=== PATIENT | female | born 1990 | race Caucasian/White ===

== ENCOUNTER 2017-05-08 11:41 | Inpatient (IN) | payer BC ==
--- NOTE | 2017-05-08 12:00 | EDM.PDOC ---
ED HPI GENERAL MEDICAL PROBLEM - General Chief Complaint: General Stated Complaint: COLLAPSED LUNG PER CHIROPRACTOR Time Seen by Provider: 05/08/17 11:58 Source of Information: Reports: Patient, Family History Limitations: Reports: No Limitations - History of Present Illness INITIAL COMMENTS - FREE TEXT/NARRATIVE: 26 y.o.w.f came to the ed after she was seen at a chiropractor's office and was told to go to an ED she may have a ruptured lung. On arrival, the patient had equal breath sounds but complained of pain at her mid lower back right para vertebral. Pt denied trauma. Pt denies any other medical issues. She takes tylenol for pain and is on the control pill. BP was 120/67 Pulse 87 RR 18 Pulse ox 97% on RA Onset: Gradual Onset Date: 05/06/17 Onset Time: 08:00 Duration: Hour(s):, Day(s):, Getting Worse, Intermittent Location: Reports: Back Quality: Reports: Ache, Burning, Dull, Pressure Severity: Moderate Improves with: Reports: Rest Worsens with: Reports: Breathing, Movement Context: Reports: Lifting Right Lower Thoracic Pain Score (Numeric/FACES): 7 - Related Data Allergies Allergy/AdvReac Type Severity Reaction Status Date / Time No Known Allergies Allergy Verified 05/08/17 11:51 Home Meds: Home Meds SUMAtriptan [Imitrex] 25 mg PO DAILY 05/08/17 [History] ED ROS GENERAL - Review of Systems Review Of Systems: See Below Constitutional: Reports: No Symptoms HEENT: Reports: No Symptoms Respiratory: Reports: Pleuritic Chest Pain Cardiovascular: Reports: No Symptoms Endocrine: Reports: No Symptoms GI/Abdominal: Reports: No Symptoms : Reports: No Symptoms Musculoskeletal: Reports: Back Pain Skin: Reports: No Symptoms Neurological: Reports: No Symptoms, Confusion Psychiatric: Reports: No Symptoms Hematologic/Lymphatic: Reports: No Symptoms Immunologic: Reports: No Symptoms ED EXAM, GENERAL - Physical Exam Exam: See Below Exam Limited By: No Limitations General Appearance: Alert, WD/WN, Obese Eye Exam: Bilateral Eye: Normal Inspection Ears: Normal External Exam, Normal Canal Ear Exam: Bilateral Ear: Auricle Normal Nose: Normal Inspection, Normal Mucosa Throat/Mouth: Normal Inspection, Normal Lips Head: Atraumatic, Normocephalic Neck: Normal Inspection, Supple, Non-Tender, Full Range of Motion Respiratory/Chest: No Respiratory Distress, Lungs Clear, Normal Breath Sounds, No Accessory Muscle Use, Other (posterior chest wall tenderness) Cardiovascular: Normal Peripheral Pulses, Regular Rate, Rhythm, No Edema, No Gallop, No JVD, No Murmur, No Rub Peripheral Pulses: 1+: Brachial (R) GI/Abdominal: Normal Bowel Sounds, Soft, Non-Tender, No Organomegaly (Female) Exam: Deferred Rectal (Female) Exam: Deferred Back Exam: Normal Inspection, Full Range of Motion Extremities: Normal Inspection, Normal Range of Motion, Non-Tender, No Pedal Edema Neurological: Alert, Oriented, CN II-XII Intact, Normal Cognition, Normal Gait, No Motor/Sensory Deficits Psychiatric: Normal Affect, Normal Mood Skin Exam: Warm, Dry, Intact, Normal Color, No Rash Lymphatic: No Adenopathy EKG INTERPRETATION EKG Date: 05/08/17 Time: 13:35 Rhythm: NSR Rate (Beats/Min): 91 [place]: Normal P-Wave: Present QRS: Normal ST-T: Normal QT: Normal Comparison: NA - No Prior EKG Course - Vital Signs Text/Narrative:: 26 y.o.w.f came to the ed after she was seen at a chiropractor's office and was told to go to an ED she may have a ruptured lung. On arrival, the patient had equal breath sounds but complained of pain at her mid lower back right para vertebral. Pt denied trauma. Pt denies any other medical issues. She takes tylenol for pain and is on the control pill. BP was 120/67 Pulse 87 RR 18 Pulse ox 97% on RA PE: WNWD W F wt back pain Incident: Pt passed out for a few seconds a few min after Toradol was given. Nurse called code blue. As i arrived at the pt's room, she was pale but resopnding to verbal stimuli. Vitals were check and found to be Nl. Pt did not complain of any pain but her back as prev mentioned. Pt was tranported with a kids club attendant back on her bed and reexamined. No head, neck, chest (please see note above) abd. pelvis and extremity pain. Labs, meds and imaging studies were ordered. Labs: UA pos for UTI, neg for HCG, WBC was 16.6 with left shift, D Dimer was [id number] Imaging: CXR 2 view: Nl, no Pneumo, no infiltrate. Read by RAD CTA chest was pos for RLL lung infarct, PA at RLL of lung (central/peripheral). Risk factors for PE, CVA etc on a young patient: Birthcontrol, activity and Obesity Impression: Pulmonary embolism with pulmonary infarct RLL of lung. C/W sprain, vasovagal syncopy after toradol shot given, UTI Tx: ICE, Toradol, Duoneb, Solumedrol, Levoquin, NS intially. After CT results came back, Heparin boulus and Heparin drip were started. 4.20 pm: Consultation: Dr. Basilio, Hospitalist at [facility]: Agreed with Heparin bolus/drip, accepted the patient for transfer and further care. 4.56 pm EMS was adviced no to transfer pt due to the extreme bad weather condition 5.01 pm: Consultation: Dr. Cuellar: Accepted the pt for admission to the ICU and further care. Dr. Cuellar will write the admission oders. Plan: Admit to ICU Last Recorded V/S: Last Vital Signs Temp 36.5 C 05/08/17 21:30 Pulse 93 05/08/17 21:30 Resp 16 05/08/17 21:30 BP 123/74 05/08/17 21:30 Pulse Ox 94 L 05/08/17 21:30 - Orders/Labs/Meds Orders: Active Orders 24 hr Category Date Time Status Ang Chest [CT] Stat Exams 05/08/17 15:09 Taken CULTURE BLOOD [BC] Urgent Lab 05/08/17 14:25 Received CULTURE BLOOD [BC] Urgent Lab 05/08/17 17:28 Received CULTURE URINE [RM] Stat Lab 05/08/17 11:59 Received Blood Culture x2 Reflex Set [OM.PC] Urgent Oth 05/08/17 14:30 Ordered Blood Culture x2 Reflex Set [OM.PC] Urgent Oth 05/08/17 17:04 Ordered Ice Bag [Ice Therapy] [OM.PC] Routine Oth 05/08/17 12:57 Ordered Medication Orders Hydrocodone Bitart/Acetaminophen ([place] 325-5 Mg) 1 tab PO Q4H PRN PRN Reason: Pain (moderate 4-6) Levofloxacin/Dextrose 750 mg/ (Premix) 150 mls @ 100 mls/hr IV Q24H [facility] Rivaroxaban (Xarelto) 15 mg [facility]ALS [facility] Sodium Chloride (Saline Flush) 10 ml FLUSH ASDIRECTED PRN PRN Reason: Keep Vein Open Last Admin: 05/08/17 20:38 Dose: 10 ml Admin: 05/08/17 18:09 Dose: 10 ml Labs: Laboratory Tests 05/08/17 05/08/17 05/08/17 Range/Units 11:59 11:59 11:59 WBC (4.5-12.0) X10-3/uL RBC (3.23-5.20) x10(6)uL Hgb (11.5-15.5) g/dL Hct (30.0-51.3) % MCV (80-96) fL MCH (27.7-33.6) pg MCHC (32.2-35.4) g/dL RDW (11.5-15.5) % Plt Count (125-369) X10(3)uL MPV (7.4-10.4) fL Neut % (Auto) (46-82) % Lymph % (Auto) (13-37) % Brooke % (Auto) (4-12) % Eos % (Auto) (1.0-5.0) % Baso % (Auto) (0-2) % Neut # (Auto) (1.6-8.3) # Lymph # (Auto) (0.6-5.0) # Brooke # (Auto) (0.0-1.3) # Eos # (Auto) (0.0-0.8) # Baso # (Auto) (0.0-0.2) # PT (8.7-11.1) INR (0.89-1.13) APTT (24.4-33.2) SECONDS D-Dimer, Quantitative (100-400) ng/mL Sodium (135-145) mmol/L Potassium (3.5-5.3) mmol/L Chloride (100-110) mmol/L Carbon Dioxide (21-32) mmol/L BUN (7-18) mg/dL Creatinine (0.55-1.02) mg/dL Est Cr Clr Drug Dosing mL/min Estimated GFR (MDRD) (>60) BUN/Creatinine Ratio (9-20) Glucose (80-116) mg/dL Lactic Acid (0.4-2.2) mmol/L Calcium (8.6-10.2) mg/dL Creatine Kinase (60-160) IU/L Urine Color Yellow (YELLOW) Urine Appearance Cloudy (CLEAR) Urine pH 5.0 (5.0-6.5) Ur Specific [place] 1.020 (1.010-1.025) Urine Protein Trace (NEGATIVE) mg/dL Urine Glucose (UA) Normal (NEGATIVE) mg/dL Urine Ketones Negative (NEGATIVE) mg/dL Urine Occult Blood Moderate H (NEGATIVE) Urine Nitrite Negative (NEGATIVE) Urine Bilirubin Small H (NEGATIVE) Urine Urobilinogen 4 H (NEGATIVE) mg/dL Ur Leukocyte Esterase Large H (NEGATIVE) Urine RBC 5-10 (0) Urine WBC 20-30 H (0) Ur Squamous Epith Cells Moderate H (NS,R,O) Urine Bacteria Many H (NS) Urine HCG, Qual Negative (NEGATIVE) Urine Opiates Screen Negative (NEGATIVE) Ur Oxycodone Screen Negative (NEGATIVE) Ur Propoxyphene Screen Negative (NEGATIVE) Ur Barbituates Screen Negative (NEGATIVE) Ur Tricyclics Screen Negative (NEGATIVE) Ur Phencyclidine Scrn Negative (NEGATIVE) Ur Amphetamine Screen Negative (NEGATIVE) Urine MDMA Screen Negative (NEGATIVE) U Benzodiazepines Scrn Negative (NEGATIVE) U Cocaine Metab Screen Negative (NEGATIVE) U Marijuana (THC) Screen Negative (NEGATIVE) Ethyl Alcohol (<0.03) % 05/08/17 05/08/17 05/08/17 Range/Units 13:35 13:40 13:40 WBC 16.6 H (4.5-12.0) X10-3/uL RBC 4.19 (3.23-5.20) x10(6)uL Hgb 11.9 (11.5-15.5) g/dL Hct 35.4 (30.0-51.3) % MCV 84.5 (80-96) fL MCH 28.3 (27.7-33.6) pg MCHC 33.5 (32.2-35.4) g/dL RDW 13.2 (11.5-15.5) % Plt Count 247 (125-369) X10(3)uL MPV 8.8 (7.4-10.4) fL Neut % (Auto) 84.8 H (46-82) % Lymph % (Auto) 11.2 L (13-37) % Brooke % (Auto) 2.6 L (4-12) % Eos % (Auto) 1 (1.0-5.0) % Baso % (Auto) 0 (0-2) % Neut # (Auto) 14.1 H (1.6-8.3) # Lymph # (Auto) 1.9 (0.6-5.0) # Brooke # (Auto) 0.4 (0.0-1.3) # Eos # (Auto) 0.2 (0.0-0.8) # Baso # (Auto) 0.0 (0.0-0.2) # PT 9.3 (8.7-11.1) INR 0.92 (0.89-1.13) APTT 25.4 (24.4-33.2) SECONDS D-Dimer, Quantitative (100-400) ng/mL Sodium (135-145) mmol/L Potassium (3.5-5.3) mmol/L Chloride (100-110) mmol/L Carbon Dioxide (21-32) mmol/L BUN (7-18) mg/dL Creatinine (0.55-1.02) mg/dL Est Cr Clr Drug Dosing mL/min Estimated GFR (MDRD) (>60) BUN/Creatinine Ratio (9-20) Glucose (80-116) mg/dL Lactic Acid (0.4-2.2) mmol/L Calcium (8.6-10.2) mg/dL Creatine Kinase (60-160) IU/L Urine Color (YELLOW) Urine Appearance (CLEAR) Urine pH (5.0-6.5) Ur Specific [place] (1.010-1.025) Urine Protein (NEGATIVE) mg/dL Urine Glucose (UA) (NEGATIVE) mg/dL Urine Ketones (NEGATIVE) mg/dL Urine Occult Blood (NEGATIVE) Urine Nitrite (NEGATIVE) Urine Bilirubin (NEGATIVE) Urine Urobilinogen (NEGATIVE) mg/dL Ur Leukocyte Esterase (NEGATIVE) Urine RBC (0) Urine WBC (0) Ur Squamous Epith Cells (NS,R,O) Urine Bacteria (NS) Urine HCG, Qual (NEGATIVE) Urine Opiates Screen (NEGATIVE) Ur Oxycodone Screen (NEGATIVE) Ur Propoxyphene Screen (NEGATIVE) Ur Barbituates Screen (NEGATIVE) Ur Tricyclics Screen (NEGATIVE) Ur Phencyclidine Scrn (NEGATIVE) Ur Amphetamine Screen (NEGATIVE) Urine MDMA Screen (NEGATIVE) U Benzodiazepines Scrn (NEGATIVE) U Cocaine Metab Screen (NEGATIVE) U Marijuana (THC) Screen (NEGATIVE) Ethyl Alcohol (<0.03) % 05/08/17 05/08/17 05/08/17 Range/Units 13:40 13:40 13:40 WBC (4.5-12.0) X10-3/uL RBC (3.23-5.20) x10(6)uL Hgb (11.5-15.5) g/dL Hct (30.0-51.3) % MCV (80-96) fL MCH (27.7-33.6) pg MCHC (32.2-35.4) g/dL RDW (11.5-15.5) % Plt Count (125-369) X10(3)uL MPV (7.4-10.4) fL Neut % (Auto) (46-82) % Lymph % (Auto) (13-37) % [place] % (Auto) (4-12) % Eos % (Auto) (1.0-5.0) % Baso % (Auto) (0-2) % Neut # (Auto) (1.6-8.3) # Lymph # (Auto) (0.6-5.0) # [place] # (Auto) (0.0-1.3) # Eos # (Auto) (0.0-0.8) # Baso # (Auto) (0.0-0.2) # PT (8.7-11.1) INR (0.89-1.13) APTT (24.4-33.2) SECONDS D-Dimer, Quantitative (100-400) ng/mL Sodium 139 (135-145) mmol/L Potassium 4.5 (3.5-5.3) mmol/L Chloride 103 (100-110) mmol/L Carbon Dioxide 25 (21-32) mmol/L BUN 15 (7-18) mg/dL Creatinine 0.8 (0.55-1.02) mg/dL Est Cr Clr Drug Dosing 118.06 mL/min Estimated GFR (MDRD) > 60 (>60) BUN/Creatinine Ratio 18.8 (9-20) Glucose 124 H (80-116) mg/dL Lactic Acid (0.4-2.2) mmol/L Calcium 9.6 (8.6-10.2) mg/dL Creatine Kinase 39 L (60-160) IU/L Urine Color (YELLOW) Urine Appearance (CLEAR) Urine pH (5.0-6.5) Ur Specific [place] (1.010-1.025) Urine Protein (NEGATIVE) mg/dL Urine Glucose (UA) (NEGATIVE) mg/dL Urine Ketones (NEGATIVE) mg/dL Urine Occult Blood (NEGATIVE) Urine Nitrite (NEGATIVE) Urine Bilirubin (NEGATIVE) Urine Urobilinogen (NEGATIVE) mg/dL Ur Leukocyte Esterase (NEGATIVE) Urine RBC (0) Urine WBC (0) Ur Squamous Epith Cells (NS,R,O) Urine Bacteria (NS) Urine HCG, Qual (NEGATIVE) Urine Opiates Screen (NEGATIVE) Ur Oxycodone Screen (NEGATIVE) Ur Propoxyphene Screen (NEGATIVE) Ur Barbituates Screen (NEGATIVE) Ur Tricyclics Screen (NEGATIVE) Ur Phencyclidine Scrn (NEGATIVE) Ur Amphetamine Screen (NEGATIVE) Urine MDMA Screen (NEGATIVE) U Benzodiazepines Scrn (NEGATIVE) U Cocaine Metab Screen (NEGATIVE) U Marijuana (THC) Screen (NEGATIVE) Ethyl Alcohol < 0.03 (<0.03) % 05/08/17 05/08/17 Range/Units 13:40 14:25 WBC (4.5-12.0) X10-3/uL RBC (3.23-5.20) x10(6)uL Hgb (11.5-15.5) g/dL Hct (30.0-51.3) % MCV (80-96) fL MCH (27.7-33.6) pg MCHC (32.2-35.4) g/dL RDW (11.5-15.5) % Plt Count (125-369) X10(3)uL MPV (7.4-10.4) fL Neut % (Auto) (46-82) % Lymph % (Auto) (13-37) % [place] % (Auto) (4-12) % Eos % (Auto) (1.0-5.0) % Baso % (Auto) (0-2) % Neut # (Auto) (1.6-8.3) # Lymph # (Auto) (0.6-5.0) # [place] # (Auto) (0.0-1.3) # Eos # (Auto) (0.0-0.8) # Baso # (Auto) (0.0-0.2) # PT (8.7-11.1) INR (0.89-1.13) APTT (24.4-33.2) SECONDS D-Dimer, Quantitative 3390 H (100-400) ng/mL Sodium (135-145) mmol/L Potassium (3.5-5.3) mmol/L Chloride (100-110) mmol/L Carbon Dioxide (21-32) mmol/L BUN (7-18) mg/dL Creatinine (0.55-1.02) mg/dL Est Cr Clr Drug Dosing mL/min Estimated GFR (MDRD) (>60) BUN/Creatinine Ratio (9-20) Glucose (80-116) mg/dL Lactic Acid 0.4 (0.4-2.2) mmol/L Calcium (8.6-10.2) mg/dL Creatine Kinase (60-160) IU/L Urine Color (YELLOW) Urine Appearance (CLEAR) Urine pH (5.0-6.5) Ur Specific [place] (1.010-1.025) Urine Protein (NEGATIVE) mg/dL Urine Glucose (UA) (NEGATIVE) mg/dL Urine Ketones (NEGATIVE) mg/dL Urine Occult Blood (NEGATIVE) Urine Nitrite (NEGATIVE) Urine Bilirubin (NEGATIVE) Urine Urobilinogen (NEGATIVE) mg/dL Ur Leukocyte Esterase (NEGATIVE) Urine RBC (0) Urine WBC (0) Ur Squamous Epith Cells (NS,R,O) Urine Bacteria (NS) Urine HCG, Qual (NEGATIVE) Urine Opiates Screen (NEGATIVE) Ur Oxycodone Screen (NEGATIVE) Ur Propoxyphene Screen (NEGATIVE) Ur Barbituates Screen (NEGATIVE) Ur Tricyclics Screen (NEGATIVE) Ur Phencyclidine Scrn (NEGATIVE) Ur Amphetamine Screen (NEGATIVE) Urine MDMA Screen (NEGATIVE) U Benzodiazepines Scrn (NEGATIVE) U Cocaine Metab Screen (NEGATIVE) U Marijuana (THC) Screen (NEGATIVE) Ethyl Alcohol (<0.03) % Meds: Medications Generic Name Dose Route Start Last Admin Trade Name Freq PRN Reason Stop Dose Admin Hydrocodone Bitart/Acetaminophen 1 tab 05/08/17 17:42 [place] 325-5 Mg PO Q4H PRN Pain (moderate 4-6) Levofloxacin/Dextrose 750 mg/ 150 mls @ 100 mls/hr 05/09/17 18:00 Premix IV Q24H [facility] Rivaroxaban 15 mg 05/09/17 08:00 Xarelto PO BIDMEALS [facility] Sodium Chloride 10 ml 05/08/17 17:42 05/08/17 20:38 Saline Flush FLUSH 10 ml ASDIRECTED PRN Administration Keep Vein Open Discontinued Medications Generic Name Dose Route Start Last Admin Trade Name Freq PRN Reason Stop Dose Admin Albuterol/Ipratropium 3 ml 05/08/17 13:25 05/08/17 13:30 Duoneb 3.0-0.5 Mg/3 Ml NEB 05/08/17 13:26 3 ml ONETIME ONE Administration Heparin Sodium (Porcine) 7,500 units 05/08/17 16:22 05/08/17 16:26 Heparin Sodium IVPUSH 05/08/17 16:23 7,500 units ONETIME STA Administration Sodium Chloride 1,000 mls @ 999 mls/hr 05/08/17 13:31 05/08/17 13:50 Normal Saline IV 05/08/17 14:31 999 mls/hr .BOLUS ONE Administration Heparin Sodium/Dextrose 25,000 units in 500 mls @ 25.945 mls/hr 05/08/17 16: 30 05/08/17 16:34 Heparin 25,000 Units In D5w 500 Ml IV 11 units/kg/hr TITRATE [facility] 25.945 mls/hr Protocol Administration 11 UNITS/KG/HR Levofloxacin/Dextrose 250 mls @ 250 mls/hr 05/08/17 18:15 05/08/17 19:44 Levaquin In D5w 250 Mg/50 Ml IV 05/08/17 19:14 250 mls/hr ONETIME ONE Administration Iopamidol 100 ml 05/08/17 14:44 05/08/17 15:53 Isovue-370 (76%) IV 05/08/17 14:45 80 ml . DIRECTED ONE Administration Ketorolac Tromethamine 60 mg 05/08/17 12:57 05/08/17 13:03 Toradol IM 05/08/17 12:58 60 mg ONETIME ONE Administration Levofloxacin 500 mg 05/08/17 16:29 05/08/17 16:41 Levaquin PO 05/08/17 16:30 500 mg ONETIME STA Administration Methylprednisolone Sodium Succinate 125 mg 05/08/17 13:24 05/08/17 13:52 Solu-Medrol IVPUSH 05/08/17 13:25 125 mg ONETIME ONE Administration Non-Formulary Medication 25 mg 05/08/17 18:00 Sumatriptan [Imitrex] PO DAILY [facility] Rivaroxaban 15 mg 05/08/17 18:00 05/08/17 19:44 Xarelto PO Not Given BID [facility] Rivaroxaban 15 mg 05/08/17 18:30 05/08/17 19:43 Xarelto PO 05/08/17 18:31 15 mg ONETIME ONE Administration Departure - Departure Time of Disposition: 05:00 Disposition: Admitted As Inpatient 65 Condition: Fair Clinical Impression: Pulmonary emboli - Discharge Information - My Orders Last 24 Hours: My Active Orders 05/08/17 11:59 CULTURE URINE [RM] Stat 05/08/17 12:57 Ice Bag [Ice Therapy] [OM.PC] Routine 05/08/17 14:25 CULTURE BLOOD [BC] Urgent 05/08/17 14:30 Blood Culture x2 Reflex Set [OM.PC] Urgent 05/08/17 15:09 Ang Chest [CT] Stat 05/08/17 17:04 Blood Culture x2 Reflex Set [OM.PC] Urgent 05/08/17 17:28 CULTURE BLOOD [BC] Urgent - Assessment/Plan Last 24 Hours: My Active Orders 05/08/17 11:59 CULTURE URINE [RM] Stat 05/08/17 12:57 Ice Bag [Ice Therapy] [OM.PC] Routine 05/08/17 14:25 CULTURE BLOOD [BC] Urgent 05/08/17 14:30 Blood Culture x2 Reflex Set [OM.PC] Urgent 05/08/17 15:09 Ang Chest [CT] Stat 05/08/17 17:04 Blood Culture x2 Reflex Set [OM.PC] Urgent 05/08/17 17:28 CULTURE BLOOD [BC] Urgent
[2017-05-08] MEDS ORDERED: Ketorolac 60 MG/2 ML SDV IM ONE (12:57)
[2017-05-08] MEDS ORDERED: methylPREDNISolone Sodium Succinate 125 MG/2 ML SDV IVPUSH ONE (13:24)
[2017-05-08] MEDS ORDERED: Albuterol/Ipratropium 3.0-0.5 MG/3 ML Neb Soln NEB ONE (13:25)
[2017-05-08] MEDS ORDERED: Sodium Chloride 0.9% 1,000 ML IV ONE (13:31)
[2017-05-08] MEDS ORDERED: Iopamidol 755 Mg/ML 100 ML Bottle IV ONE (14:44)
--- NOTE | 2017-05-08 15:07 | CR ---
INDICATION: Right lower chest pain, nonsmoker, no history of trauma. CHEST: PA and lateral views of the chest revealed a minimal dextroconcave scoliosis of the upper thoracic spine. Heart, mediastinum, and bony thorax were otherwise unremarkable. There is evidence of exogenous obesity. An active infiltrate, effusion, contusion, or pneumothorax was not identified. IMPRESSION: No acute process. Report was given by phone to Dr. Sánchez at approximately 1315 hours on 2017. GEORGIAD
[2017-05-08] MEDS ORDERED: Heparin Sodium 5,000 Units/ML Vial IVPUSH STA (16:22)
[2017-05-08] MEDS ORDERED: Levofloxacin 500 MG Tab PO STA (16:29)
[2017-05-08] MEDS ORDERED: Heparin Sodium/D5W 25,000 UNITS/500 ML BAG IV SCH (16:30)
[2017-05-08] MEDS ORDERED: Acetaminophen/HYDROcodone 325-5 MG Tab PO PRN (17:42)
[2017-05-08] MEDS ORDERED: SUMATRIPTAN 25 MG PO SCH (18:00)
[2017-05-08] MEDS ORDERED: Rivaroxaban 15 MG Tab PO SCH (18:00)
--- NOTE | 2017-05-08 18:03 | PCM.HP ---
H&P History of Present Illness - General Date of Service: 05/08/17 Admit Problem/Dx: Admission Diagnosis/Problem Admission Diagnosis/Problem Pulmonary embolism Source of Information: Patient History Limitations: Reports: No Limitations - History of Present Illness Initial Comments - Free Text/Narative: This is a 26-year-old came in the ER the right thoracic chest pain. She says it started Monday night and it radiated to her right arm. She says by Monday she says when she sat up it was better when she laid down was worse. She is some Aleve and I give her some relief. Today he got worse and she had a miss work. She went to the chiropractor as a result to some advice from her friends. They sent her to the ER. She was found to have small pulmonary emboli possibly either pneumonia or pulmonary infarct in the right lung. Patient was given Toradol IM and passed out but then her pain was much improved. She's had a cough today and Monday but not since. He does have nasal congestion and runny nose. She denies sore throat, fevers, chills or shortness of breath. She relates her legs are always a little bit swollen. She has no personal or family history of clotting disorders. He is on control. Right Lower Thoracic Pain Score (Numeric/FACES): 7 - Related Data Allergies/Adverse Reactions: Allergies Allergy/AdvReac Type Severity Reaction Status Date / Time No Known Allergies Allergy Verified 05/08/17 11:51 Home Medications: Home Meds SUMAtriptan [Imitrex] 25 mg PO DAILY 05/08/17 [History] Past Medical History - Past Health History Medical/Surgical History: Denies Medical/Surgical History Neurological History: Reports: Migraines Psychiatric History: Reports: Depression Social & Family History - Tobacco Use Smoking Status *Q: Never Smoker - Caffeine Use Caffeine Use: Reports: None - Recreational Drug Use Recreational Drug Use: No H&P Review of Systems - Review of Systems: Review Of Systems: See Below General: Reports: No Symptoms HEENT: Reports: No Symptoms Pulmonary: Reports: Pleuritic Chest Pain, Cough. Denies: Shortness of Breath, Wheezing, Sputum, Hemoptysis Cardiovascular: Reports: No Symptoms Gastrointestinal: Reports: No Symptoms Genitourinary: Reports: No Symptoms Musculoskeletal: Reports: No Symptoms Skin: Reports: No Symptoms Psychiatric: Reports: No Symptoms Neurological: Reports: No Symptoms Hematologic/Lymphatic: Reports: No Symptoms Immunologic: Reports: No Symptoms Exam - Exam Exam: See Below - Vital Signs Vital Signs: Last Vital Signs Temp 97.7 F 05/08/17 11:58 Pulse 91 05/08/17 13:40 Resp 18 05/08/17 11:58 BP 120/80 05/08/17 11:58 Pulse Ox 99 05/08/17 14:00 Weight: 260 lb - Exam General: Alert, Oriented, Cooperative. No: Mild Distress HEENT: Hearing Intact, Mucosa Moist & [place], Posterior Pharynx Clear, TMs Clear Neck: Supple, Trachea Midline Lungs: Clear to Auscultation, Decreased Breath Sounds. No: Crackles, Rales, Rhonchi, Rub Cardiovascular: Regular Rate, Regular Rhythm, Normal S1, Normal S2. No: Tachycardia, Systolic Murmur, Diastolic Murmur GI/Abdominal Exam: Normal Bowel Sounds, Soft, Non-Tender, No Organomegaly, No Distention, No Abnormal Bruit, No Mass Back Exam: Normal Inspection, Full Range of Motion Extremities: Normal Inspection, No Pedal Edema Skin: Warm, Dry, Intact Neurological: Normal Speech, Normal Tone Neuro Extensive - Mental Status: Alert, Oriented x3, Normal Cognition, Memory Intact Neuro Extensive - Motor, Sensory, Reflexes: Normal Gait Psychiatric: Alert, Normal Affect, Normal Mood - Patient Data Result Diagrams: 05/08/17 13:40 05/08/17 13:40 *Q Meaningful Use (ADM) - VTE *Q VTE Criteria *Q: - Stroke *Q Stroke Criteria *Q: - AMI *Q AMI Criteria *Q: - Problem List (1) Pulmonary embolism SNOMED Code(s): 87566416 ICD Code: I26.99 - OTHER PULMONARY EMBOLISM WITHOUT ACUTE COR PULMONALE Status: Acute Current Visit: Yes (2) UTI (urinary tract infection) SNOMED Code(s): 20982608 ICD Code: N39.0 - URINARY TRACT INFECTION, SITE NOT SPECIFIED Status: Acute Current Visit: Yes (3) Pneumonia SNOMED Code(s): 703190466 ICD Code: J18.9 - PNEUMONIA, UNSPECIFIED ORGANISM Status: Acute Current Visit: Yes Qualifiers: Pneumonia type: due to Pneumococcus Laterality: right Lung location: lower lobe of lung Qualified Code(s): J13 - Pneumonia due to Streptococcus pneumoniae (4) Pulmonary infarct SNOMED Code(s): 15926769 ICD Code: I26.99 - OTHER PULMONARY EMBOLISM WITHOUT ACUTE COR PULMONALE Status: Acute Current Visit: Yes Problem List Initiated/Reviewed/Updated: Yes Orders Last 24hrs: Active Orders 24 hr Category Date Time Status Admission Status [Patient Status] [ADT] Routine ADT 05/08/17 17:42 Active Patient Status [ADT] Routine ADT 05/08/17 17:42 Ordered Cardiac Monitoring [RC] CONTINUOUS Care 05/08/17 17:44 Ordered May Shower [RC] ASDIRECTED Care 05/08/17 17:42 Ordered Oxygen Therapy [RC] PRN Care 05/08/17 17:42 Ordered Up ad Alanis [RC] ASDIRECTED Care 05/08/17 17:42 Ordered VTE/DVT Education [RC] Per Unit Routine Care 05/08/17 17:42 Ordered Vital Signs [RC] Q4H Care 05/08/17 17:42 Ordered Regular Diet [DIET] Diet 05/08/17 Dinner Ordered VL Duplex Lwr Ext Veins Comp [US] Routine Exams 05/08/17 17:50 Ordered BLOOD GAS ARTERIAL [BG] Routine Lab 05/08/17 17:42 Ordered CBC WITH AUTO DIFF [HEME] AM Lab 05/09/17 05:11 Ordered COMPREHENSIVE METABOLIC PN,CMP [CHEM] AM Lab 05/09/17 05:11 Ordered PTT,PARTIAL THROMBOPLSTIN TIME [COAG] Routine Lab 05/08/17 17:42 Ordered Acetaminophen/HYDROcodone [[place] 325-5 MG] Med 05/08/17 17:42 Ordered 1 tab PO Q4H PRN Levofloxacin/Dextrose 5%-Water [Levaquin in D5W 750 MG/ Med 05/08/17 18:00 Ordered 150 ML] 750 mg Premix Bag 1 bag IV Q24H Rivaroxaban [Xarelto] Med 05/08/17 18:00 Ordered 15 mg PO BID Sodium Chloride 0.9% [Saline Flush] Med 05/08/17 17:42 Ordered 10 ml FLUSH ASDIRECTED PRN Peripheral IV Insertion Adult [OM.PC] Routine Oth 05/08/17 17:42 Ordered Saline Lock Insert [OM.PC] Routine Oth 05/08/17 17:42 Ordered Sequential Compression Device [OM.PC] Per Unit Routine Oth 05/08/17 17:44 Ordered Resuscitation Status Routine Resus Stat 05/08/17 17:42 Ordered Medication Orders Hydrocodone Bitart/Acetaminophen ([place] 325-5 Mg) 1 tab PO Q4H PRN PRN Reason: Pain (moderate 4-6) Levofloxacin/Dextrose 750 mg/ (Premix) 150 mls @ 100 mls/hr IV Q24H MARLIN Rivaroxaban (Xarelto) 15 mg PO BID MARLIN Sodium Chloride (Saline Flush) 10 ml FLUSH ASDIRECTED PRN PRN Reason: Keep Vein Open Assessment/Plan Comment:: 1. Admit to ICU. 2. She's put on heparin and the the ER. Stop heparin (well Toprol 50 mg twice a day for 3 weeks. 3. Up ad alanis., regular diet. 4. Ultrasound legs in the morning to see if she has any DVTs. 5. Discussed CT results radiologist. He says it could be an infarct or a pneumonia. He says he can't tell the difference in needs to be discerned clinically. She does have a white count but she also has a UTI. 6. Blood cultures 2 and a urine culture. 7. Levaquin 750 mg IV every 24 hours. 8. Continuous O2 sats and telemetry. 9. DC control pills.
[2017-05-08] MEDS: Sodium Chloride 0.9% 10 ML Syringe FLUSH PRN ×2 (18:09→20:38)
[2017-05-08] MEDS ORDERED: Levofloxacin/Dextrose 5%-Water 250 ML IV ONE (18:15)
[2017-05-08] MEDS ORDERED: Rivaroxaban 15 MG Tab PO ONE (18:30)
[2017-05-09] MEDS ORDERED: Rivaroxaban 15 MG Tab PO SCH (08:00)
[2017-05-09] MEDS ORDERED: SUMAtriptan 50 MG Tab PO PRN (09:25)
[2017-05-09] MEDS ORDERED: buPROPion 150 MG Tab.SR PO SCH ×2 (09:30→21:00)
--- NOTE | 2017-05-09 09:42 | PCM.PN ---
- General Info Date of Service: 05/09/17 Admission Dx/Problem (Free Text): Patient without complaints. She denies shortness of breath, chest wall pain or chest pain. Denies coughing or fevers. - Patient Data Vitals - Most Recent: Last Vital Signs Temp 97.9 F 05/09/17 08:00 Pulse 85 05/09/17 04:10 Resp 18 05/09/17 08:00 BP 126/66 05/09/17 08:00 Pulse Ox 98 05/09/17 08:00 Weight - Most Recent: 260 lb I&O - Last 24 Hours: Intake & Output 05/08/17 05/09/17 05/09/17 22:59 06:59 14:59 Intake Total 30 Balance 30 Lab Results Last 24 Hours: Laboratory Results - last 24 hr 05/08/17 05/09/17 05/09/17 Range/Units 18:10 06:20 06:20 WBC 12.3 H (4.5-12.0) X10-3/uL RBC 3.82 (3.23-5.20) x10(6)uL Hgb 10.7 L (11.5-15.5) g/dL Hct 32.4 (30.0-51.3) % MCV 84.9 (80-96) fL MCH 28.0 (27.7-33.6) pg MCHC 33.0 (32.2-35.4) g/dL RDW 13.1 (11.5-15.5) % Plt Count 186 (125-369) X10(3)uL MPV 9.3 (7.4-10.4) fL Neut % (Auto) 77.9 (46-82) % Lymph % (Auto) 13.7 (13-37) % [place]agher % (Auto) 5.3 (4-12) % Eos % (Auto) 0 L (1.0-5.0) % Baso % (Auto) 3 H (0-2) % Neut # (Auto) 9.5 H (1.6-8.3) # Lymph # (Auto) 1.7 (0.6-5.0) # Meagher # (Auto) 0.6 (0.0-1.3) # Eos # (Auto) 0.0 (0.0-0.8) # Baso # (Auto) 0.4 H (0.0-0.2) # ABG pH 7.48 H (7.35-7.45) ABG pCO2 27 L (35-45) mmHg ABG pO2 77 L (83-108) mmHg ABG HCO3 20 L (22-26) mmol/L ABG O2 Saturation 96 (96-97) % ABG Base Excess -2.5 L (-2-2) Emir Test Passed O2 Delivery Device Room air Oxygen Flow Rate 0 L Sodium 141 (135-145) mmol/L Potassium 4.1 (3.5-5.3) mmol/L Chloride 106 (100-110) mmol/L Carbon Dioxide 26 (21-32) mmol/L BUN 10 (7-18) mg/dL Creatinine 0.6 (0.55-1.02) mg/dL Est Cr Clr Drug Dosing 157.41 mL/min Estimated GFR (MDRD) > 60 (>60) BUN/Creatinine Ratio 16.7 (9-20) Glucose 127 H (80-116) mg/dL Calcium 8.8 (8.6-10.2) mg/dL Total Bilirubin 0.2 (0.1-1.3) mg/dL AST 10 (5-25) IU/L ALT 17 (12-36) U/L Alkaline Phosphatase 109 (56-112) IU/L Total Protein 6.7 (6.0-8.0) g/dL Albumin 2.3 L (3.5-5.2) g/dL Globulin 4.4 g/dL Albumin/Globulin Ratio 0.5 Med Orders - Current: Current Medications Hydrocodone Bitart/Acetaminophen ([place] 325-5 Mg) 1 tab PO Q4H PRN PRN Reason: Pain (moderate 4-6) Bupropion HCl (Wellbutrin Sr) 150 mg PO BID MARLIN Enoxaparin Sodium (Lovenox) 120 mg SUBCUT Q12H MARLIN Levofloxacin/Dextrose 750 mg/ (Premix) 150 mls @ 100 mls/hr IV Q24H MARLIN Propranolol HCl (Inderal La) 60 mg PO BEDTIME MARLIN Sodium Chloride (Saline Flush) 10 ml FLUSH ASDIRECTED PRN PRN Reason: Keep Vein Open Last Admin: 05/08/17 20:38 Dose: 10 ml Sumatriptan Succinate (Imitrex) 100 mg PO ASDIRECTED PRN PRN Reason: MIGRAINE Discontinued Medications Albuterol/Ipratropium (Duoneb 3.0-0.5 Mg/3 Ml) 3 ml NEB ONETIME ONE Stop: 05/08/17 13:26 Last Admin: 05/08/17 13:30 Dose: 3 ml Heparin Sodium (Porcine) (Heparin Sodium) 7,500 units IVPUSH ONETIME STA Stop: 05/08/17 16:23 Last Admin: 05/08/17 16:26 Dose: 7,500 units Sodium Chloride (Normal Saline) 1,000 mls @ 999 mls/hr IV .BOLUS ONE Stop: 05/08/17 14:31 Last Admin: 05/08/17 13:50 Dose: 999 mls/hr Heparin Sodium/Dextrose (Heparin 25,000 Units In D5w 500 Ml) 25,000 units in 500 mls @ 25.945 mls/hr IV TITRATE MARLIN; 11 UNITS/KG/HR PRN Reason: Protocol Last Admin: 05/08/17 16:34 Dose: 11 units/kg/hr, 25.945 mls/hr Levofloxacin/Dextrose (Levaquin In D5w 250 Mg/50 Ml) 250 mls @ 250 mls/hr IV ONETIME ONE Stop: 05/08/17 19:14 Last Admin: 05/08/17 19:44 Dose: 250 mls/hr Iopamidol (Isovue-370 (76%)) 100 ml IV . DIRECTED ONE Stop: 05/08/17 14:45 Last Admin: 05/08/17 15:53 Dose: 80 ml Ketorolac Tromethamine (Toradol) 60 mg IM ONETIME ONE Stop: 05/08/17 12:58 Last Admin: 05/08/17 13:03 Dose: 60 mg Levofloxacin (Levaquin) 500 mg PO ONETIME STA Stop: 05/08/17 16:30 Last Admin: 05/08/17 16:41 Dose: 500 mg Methylprednisolone Sodium Succinate (Solu-Medrol) 125 mg IVPUSH ONETIME ONE Stop: 05/08/17 13:25 Last Admin: 05/08/17 13:52 Dose: 125 mg Non-Formulary Medication (Sumatriptan [Imitrex]) 25 mg PO DAILY MARLIN Rivaroxaban (Xarelto) 15 mg PO BID MARLIN Last Admin: 05/08/17 19:44 Dose: Not Given Rivaroxaban (Xarelto) 15 mg PO BIDMEALS [facility] Last Admin: 05/09/17 08:10 Dose: 15 mg Rivaroxaban (Xarelto) 15 mg PO ONETIME ONE Stop: 05/08/17 18:31 Last Admin: 05/08/17 19:43 Dose: 15 mg - Exam General: Alert, Oriented HEENT: Pupils Equal Lungs: Clear to Auscultation, Normal Respiratory Effort, Crackles. No: Rales, Rhonchi, Rub Cardiovascular: Regular Rhythm, No Murmurs Extremities: No Pedal Edema - Problem List & Annotations (1) Pulmonary embolism SNOMED Code(s): 11762232 Code(s): I26.99 - OTHER PULMONARY EMBOLISM WITHOUT ACUTE COR PULMONALE Status: Acute Current Visit: Yes (2) UTI (urinary tract infection) SNOMED Code(s): 52506777 Code(s): N39.0 - URINARY TRACT INFECTION, SITE NOT SPECIFIED Status: Acute Current Visit: Yes (3) Pneumonia SNOMED Code(s): 242614983 Code(s): J18.9 - PNEUMONIA, UNSPECIFIED ORGANISM Status: Acute Current Visit: Yes Qualifiers: Pneumonia type: due to Pneumococcus Laterality: right Lung location: lower lobe of lung Qualified Code(s): J13 - Pneumonia due to Streptococcus pneumoniae (4) Pulmonary infarct SNOMED Code(s): 51839561 Code(s): I26.99 - OTHER PULMONARY EMBOLISM WITHOUT ACUTE COR PULMONALE Status: Acute Current Visit: Yes - Problem List Review Problem List Initiated/Reviewed/Updated: Yes - My Orders Last 24 Hours: My Active Orders 05/08/17 17:42 Admission Status [Patient Status] [ADT] Routine Patient Status [ADT] Routine May Shower [RC] ASDIRECTED Oxygen Therapy [RC] PRN Up ad Vahid [RC] ASDIRECTED Vital Signs [RC] 04,08,12,16,20,00 Acetaminophen/HYDROcodone [[place] 325-5 MG] 1 tab PO Q4H PRN Sodium Chloride 0.9% [Saline Flush] 10 ml FLUSH ASDIRECTED PRN Peripheral IV Insertion Adult [OM.PC] Routine Saline Lock Insert [OM.PC] Routine Resuscitation Status Routine 05/08/17 17:44 Cardiac Monitoring [RC] 08,16,00 Sequential Compression Device [OM.PC] Per Unit Routine 05/08/17 Dinner Regular Diet [DIET] 05/09/17 09:25 SUMAtriptan [Imitrex] 100 mg PO ASDIRECTED PRN 05/09/17 09:30 buPROPion [Wellbutrin SR] 150 mg PO BID 05/09/17 16:00 Enoxaparin [Lovenox] 120 mg SUBCUT Q12H 05/09/17 18:00 Levofloxacin/Dextrose 5%-Water [Levaquin in D5W 750 MG/150 ML] 750 mg Premix Bag 1 bag IV Q24H 05/09/17 21:00 Propranolol [Inderal LA] 60 mg PO BEDTIME - Assessment Assessment:: 1. Discussed care with pulmonology. They review the x-ray and felt that once she is on Lovenox she should go home because she stable. I discern Xarellto. He likes Prodaxa because as a reversing agent. He recommended Lovenox twice a day for 5 days then start the productive. Patient was given Xarellto total this a.m. Wait till this afternoon and start Lovenox. If she does well through the day we'll discharge her later today. We will do Lovenox teaching. She can have all her home medication except control. We'll discharge her from the ICU and continue telemetry. - Plan Plan:: 1. Admit to ICU. 2. She's put on heparin and the the ER. Stop heparin (well Toprol 50 mg twice a day for 3 weeks. 3. Up ad vahid., regular diet. 4. Ultrasound legs in the morning to see if she has any DVTs. 5. Discussed CT results radiologist. He says it could be an infarct or a pneumonia. He says he can't tell the difference in needs to be discerned clinically. She does have a white count but she also has a UTI. 6. Blood cultures 2 and a urine culture. 7. Levaquin 750 mg IV every 24 hours. 8. Continuous O2 sats and telemetry. 9. DC control pills.
[2017-05-09] MEDS ORDERED: SUMATRIPTAN SUCCINATE 100 MG PO PRN (09:43)
--- NOTE | 2017-05-09 11:22 | CT ---
INDICATION: Elevated D-dimer, posterior chest pain. CT ANGIOGRAPHY OF THE CHEST WITH CONTRAST FOR PULMONARY ANGIOGRAPHY - PULMONARY EMBOLI: Spiral 1.25 mm axial sections were obtained through the chest with 80 mL Isovue 370 at 2.8 mL/second, with sagittal and coronal reconstructions 2017. No comparison CTs were available. Total exam DLP = 749.01 mGy-cm. There are parenchymal changes in the lower lobes, much more prominent on the right than the left, compatible with patchy pneumonia and minimal pleuritis. At the very lung base on the right, there does appear to be some consolidation of the pneumonia. Although pneumonia and pleuritis is a consideration, the possibility of pulmonary emboli with pulmonary infarction should be considered, especially since, in the right lower lobe and also extending to the middle lobe area, there appear to be multiple pulmonary emboli. These are seen in a central location at the right main pulmonary artery, but most of the pulmonary emboli are in second and third order pulmonary arteries. Likely the pleural parenchymal change at the right lung base is on the basis of pulmonary infarction, rather than pneumonia and pleuritis. Relatively minimal peripheral pulmonary emboli may be present at the right lower lobe. Visualization is less than ideal due to either Valsalva maneuver by the patient or timing of the examination. No mediastinal mass was seen. The heart did not appear enlarged. No pericardial effusion was seen. Upper abdomen visualized was unremarkable. IMPRESSION: Multiple pulmonary emboli, most notable on the right. Only one is noted at the junction of the right main pulmonary artery and secondary arteries. Most of the emboli are in second and third order pulmonary arteries going to the right lower lobe with a few seen going to the middle lobe area. More peripheral relatively smaller emboli are noted in third and fourth order vessels in the left lower lobe area. Report was called to Dr. Sánchez at 1605 hours on 05/08/2017. IMMANUEL
[2017-05-09] MEDS ORDERED: Enoxaparin 120 MG/0.8 ML Syringe SUBCUT SCH (16:00)
--- NOTE | 2017-05-09 17:39 | PCM.DCSUM1 ---
Discharge Summary - Hospital Course Free Text/Narrative:: Hospital course-patient was not able to be transferred to because of the weather conditions. We placed her in ICU and put her on Xarellto total initially. Patient's blood pressure was normal and her oxygen saturation on room air was in the high 90s to 100%. Her pain that she was having her right chest stopped after the one shot of Toradol and never came back. Patient was observed over night. Her white count which is slightly elevated came down. The radiologist of course thought she had a pulmonary infarct versus and pneumonia. She also had a UTI and is been treated with Levaquin. I did contact [facility] which reviewed the CT. They felt she was stable to go home but they wanted her on Lovenox 1 mg/kg for 5 days and then port accessed 150 twice a day after that. We'll discharge the patient on these medications. She had training entered sister is going to administer the medicine. Patient should have a hematology appointment in the future. Told the patient to offer control medication. Brief History: This is a 26-year-old came in the ER the right thoracic chest pain. She says it started Monday night and it radiated to her right arm. She says by Monday morning she says when she sat up it was better when she laid down was worse. She is some Aleve and I give her some relief. Today he got worse and she had a miss work. She went to the chiropractor as a result to some advice from her friends. They sent her to the ER. She was found to have small pulmonary emboli possibly either pneumonia or pulmonary infarct in the right lung. Patient was given Toradol IM and passed out but then her pain was much improved. She's had a cough today and Monday but not since. He does have nasal congestion and runny nose. She denies sore throat, fevers, chills or shortness of breath. She relates her legs are always a little bit swollen. She has no personal or family history of clotting disorders. He is on control. - Discharge Data Discharge Date: 05/09/17 Discharge Disposition: Home, Self-Care 01 Condition: Good - Discharge Diagnosis/Problem(s) (1) Pulmonary embolism SNOMED Code(s): 38523651 ICD Code: I26.99 - OTHER PULMONARY EMBOLISM WITHOUT ACUTE COR PULMONALE Status: Acute Current Visit: Yes (2) UTI (urinary tract infection) SNOMED Code(s): 18477742 ICD Code: N39.0 - URINARY TRACT INFECTION, SITE NOT SPECIFIED Status: Acute Current Visit: Yes (3) Pneumonia SNOMED Code(s): 409862869 ICD Code: J18.9 - PNEUMONIA, UNSPECIFIED ORGANISM Status: Acute Current Visit: Yes Qualifiers: Pneumonia type: due to Pneumococcus Laterality: right Lung location: lower lobe of lung Qualified Code(s): J13 - Pneumonia due to Streptococcus pneumoniae (4) Pulmonary infarct SNOMED Code(s): 46627361 ICD Code: I26.99 - OTHER PULMONARY EMBOLISM WITHOUT ACUTE COR PULMONALE Status: Acute Current Visit: Yes - Patient Instructions Diet: Regular Diet as Tolerated Activity: Apply Ice Driving: May Drive Today Showering/Bathing: May Shower Other/Special Instructions: 1. Recheck with Katie Song in 1 week. 2. Hematology appointment in the future. 3. Lovenox 120 mg subcutaneous for 10 doses then start per back so 150 twice a day. 4. Off work until she sees her primary provider. - Discharge Plan Prescriptions/Med Rec: Dabigatran [Pradaxa] 150 mg PO BID #60 cap Enoxaparin [Lovenox] 120 mg SUBCUT Q12H #9 syringe Hydrocodone/Acetaminophen [[place] 7.5-325 Tablet] 1 each PO Q4H PRN #15 tablet PRN Reason: Pain Levofloxacin [Levaquin] 750 mg PO DAILY #7 tab Home Medications: Home Meds Dabigatran [Pradaxa] 150 mg PO BID #60 cap 05/09/17 [Rx] Enoxaparin [Lovenox] 120 mg SUBCUT Q12H #9 syringe 05/09/17 [Rx] Hydrocodone/Acetaminophen [[place] 7.5-325 Tablet] 1 each PO Q4H PRN #15 tablet [Rx] Levofloxacin [Levaquin] 750 mg PO DAILY #7 tab 05/09/17 [Rx] Propranolol [Inderal LA] 60 mg PO BEDTIME 05/09/17 [History] SUMAtriptan Succinate [Imitrex] 100 mg PO ASDIRECTED PRN 05/09/17 [History] buPROPion [Wellbutrin SR] 150 mg PO BID 05/09/17 [History] Patient Handouts: Rivaroxaban oral tablets, Enoxaparin injection, Preventing Antibiotic Resistance, How and Where to Give Subcutaneous Enoxaparin Injections Forms: ED Department Discharge Referrals: Katie Galeano [employer]INER [Primary Care Provider] - - Discharge Summary/Plan Comment DC Time >30 min.: No - Patient Data Vitals - Most Recent: Last Vital Signs Temp 98.1 F 05/09/17 16:00 Pulse 85 05/09/17 04:10 Resp 18 05/09/17 16:00 BP 113/64 05/09/17 16:00 Pulse Ox 100 05/09/17 16:00 Weight - Most Recent: 260 lb I&O - Last 24 hours: Intake & Output 05/09/17 05/09/17 05/09/17 06:59 14:59 22:59 Intake Total 440 Balance 440 Lab Results - Last 24 hrs: Laboratory Results - last 24 hr 05/08/17 05/09/17 05/09/17 Range/Units 18:10 06:20 06:20 WBC 12.3 H (4.5-12.0) X10-3/uL RBC 3.82 (3.23-5.20) x10(6)uL Hgb 10.7 L (11.5-15.5) g/dL Hct 32.4 (30.0-51.3) % MCV 84.9 (80-96) fL MCH 28.0 (27.7-33.6) pg MCHC 33.0 (32.2-35.4) g/dL RDW 13.1 (11.5-15.5) % Plt Count 186 (125-369) X10(3)uL MPV 9.3 (7.4-10.4) fL Neut % (Auto) 77.9 (46-82) % Lymph % (Auto) 13.7 (13-37) % [place] % (Auto) 5.3 (4-12) % Eos % (Auto) 0 L (1.0-5.0) % Baso % (Auto) 3 H (0-2) % Neut # (Auto) 9.5 H (1.6-8.3) # Lymph # (Auto) 1.7 (0.6-5.0) # [place] # (Auto) 0.6 (0.0-1.3) # Eos # (Auto) 0.0 (0.0-0.8) # Baso # (Auto) 0.4 H (0.0-0.2) # ABG pH 7.48 H (7.35-7.45) ABG pCO2 27 L (35-45) mmHg ABG pO2 77 L (83-108) mmHg ABG HCO3 20 L (22-26) mmol/L ABG O2 Saturation 96 (96-97) % ABG Base Excess -2.5 L (-2-2) Emir Test Passed O2 Delivery Device Room air Oxygen Flow Rate 0 L Sodium 141 (135-145) mmol/L Potassium 4.1 (3.5-5.3) mmol/L Chloride 106 (100-110) mmol/L Carbon Dioxide 26 (21-32) mmol/L BUN 10 (7-18) mg/dL Creatinine 0.6 (0.55-1.02) mg/dL Est Cr Clr Drug Dosing 157.41 mL/min Estimated GFR (MDRD) > 60 (>60) BUN/Creatinine Ratio 16.7 (9-20) Glucose 127 H (80-116) mg/dL Calcium 8.8 (8.6-10.2) mg/dL Total Bilirubin 0.2 (0.1-1.3) mg/dL AST 10 (5-25) IU/L ALT 17 (12-36) U/L Alkaline Phosphatase 109 (56-112) IU/L Total Protein 6.7 (6.0-8.0) g/dL Albumin 2.3 L (3.5-5.2) g/dL Globulin 4.4 g/dL Albumin/Globulin Ratio 0.5 Med Orders - Current: Current Medications Hydrocodone Bitart/Acetaminophen ([place] 325-5 Mg) 1 tab PO Q4H PRN PRN Reason: Pain (moderate 4-6) Last Admin: 05/09/17 16:33 Dose: 1 tab Bupropion HCl (Wellbutrin Sr) 150 mg PO BID [facility] Last Admin: 05/09/17 09:41 Dose: 150 mg Enoxaparin Sodium (Lovenox) 120 mg SUBCUT Q12H [facility] Last Admin: 05/09/17 16:21 Dose: 120 mg Levofloxacin/Dextrose 750 mg/ (Premix) 150 mls @ 100 mls/hr IV Q24H [facility] Propranolol HCl (Inderal La) 60 mg PO BEDTIME [facility] Sodium Chloride (Saline Flush) 10 ml FLUSH ASDIRECTED PRN PRN Reason: Keep Vein Open Last Admin: 05/08/17 20:38 Dose: 10 ml Sumatriptan Succinate (Imitrex) 100 mg PO ASDIRECTED PRN PRN Reason: MIGRAINE Discontinued Medications Albuterol/Ipratropium (Duoneb 3.0-0.5 Mg/3 Ml) 3 ml NEB ONETIME ONE Stop: 05/08/17 13:26 Last Admin: 05/08/17 13:30 Dose: 3 ml Heparin Sodium (Porcine) (Heparin Sodium) 7,500 units IVPUSH ONETIME STA Stop: 05/08/17 16:23 Last Admin: 05/08/17 16:26 Dose: 7,500 units Sodium Chloride (Normal Saline) 1,000 mls @ 999 mls/hr IV .BOLUS ONE Stop: 05/08/17 14:31 Last Admin: 05/08/17 13:50 Dose: 999 mls/hr Heparin Sodium/Dextrose (Heparin 25,000 Units In D5w 500 Ml) 25,000 units in 500 mls @ 25.945 mls/hr IV TITRATE MARLIN; 11 UNITS/KG/HR PRN Reason: Protocol Last Admin: 05/08/17 16:34 Dose: 11 units/kg/hr, 25.945 mls/hr Levofloxacin/Dextrose (Levaquin In D5w 250 Mg/50 Ml) 250 mls @ 250 mls/hr IV ONETIME ONE Stop: 05/08/17 19:14 Last Admin: 05/08/17 19:44 Dose: 250 mls/hr Iopamidol (Isovue-370 (76%)) 100 ml IV . DIRECTED ONE Stop: 05/08/17 14:45 Last Admin: 05/08/17 15:53 Dose: 80 ml Ketorolac Tromethamine (Toradol) 60 mg IM ONETIME ONE Stop: 05/08/17 12:58 Last Admin: 05/08/17 13:03 Dose: 60 mg Levofloxacin (Levaquin) 500 mg PO ONETIME STA Stop: 05/08/17 16:30 Last Admin: 05/08/17 16:41 Dose: 500 mg Methylprednisolone Sodium Succinate (Solu-Medrol) 125 mg IVPUSH ONETIME ONE Stop: 05/08/17 13:25 Last Admin: 05/08/17 13:52 Dose: 125 mg Non-Formulary Medication (Sumatriptan [Imitrex]) 25 mg PO DAILY [facility] Rivaroxaban (Xarelto) 15 mg PO BID [facility] Last Admin: 05/08/17 19:44 Dose: Not Given Rivaroxaban (Xarelto) 15 mg PO BIDMEALS [facility] Last Admin: 05/09/17 08:10 Dose: 15 mg Rivaroxaban (Xarelto) 15 mg PO ONETIME ONE Stop: 05/08/17 18:31 Last Admin: 05/08/17 19:43 Dose: 15 mg *Q Meaningful Use (DIS) - VTE *Q VTE Criteria *Q: - Stroke *Q Stroke Criteria *Q: - AMI *Q AMI Criteria *Q:
[2017-05-09] MEDS ORDERED: Levofloxacin/Dextrose 5%-Water 750 MG in Premix Bag 1 BAG IV SCH (18:00)
[2017-05-09] MEDS ORDERED: Propranolol 60 MG Cap.ER PO SCH ×2 (21:00)
== END 2017-05-09 18:20 | disposition home or self-care (01) | DRG 134 ==
LOC: FB.ED 11:41 → FB.ICU 17:40 → FB.MS 05-09 09:43
PROVIDERS: ADMIT Family Medicine; ATTEND Family Medicine
DX: I26.99 Other pulmonary embolism without acute cor pulmonale (principal); N39.0 Urinary tract infection, site not specified; R55 Syncope and collapse; T39.8X5A Adverse effect of other nonopioid analgesics and antipyretics, not elsewhere classified, initial encounter; Y92.238 Other place in hospital as the place of occurrence of the external cause; Z79.01 Long term (current) use of anticoagulants; F32.9 Major depressive disorder, single episode, unspecified; G43.909 Migraine, unspecified, not intractable, without status migrainosus; J18.9 Pneumonia, unspecified organism; Z79.3 Long term (current) use of hormonal contraceptives
CPT/HCPCS: 36415; 36600; 71046; 71275; 80048; 80053; 80305; 81001; 81025; 82550; 82803; 83605; 85025; 85379; 85610; 85730; 87040; 87086; 93005; 94640; 96361; 96365; 96372; 96375; 96376; 99285; A9270-GY; G0480; J1644; J1650; J1885; J1956; J2930; J7040; J7050; J7620; Q9967

== ENCOUNTER 2017-05-11 14:13 | Emergency (ER) | payer BC ==
--- NOTE | 2017-05-11 15:12 | EDM.PDOC ---
ED HPI GENERAL MEDICAL PROBLEM - General Chief Complaint: Respiratory Problem Stated Complaint: SOB PAIN Time Seen by Provider: 05/11/17 15:06 Source of Information: Reports: Patient History Limitations: Reports: No Limitations - History of Present Illness INITIAL COMMENTS - FREE TEXT/NARRATIVE: c/o R chest pain pt with R chest pain and cough 6d ago, came ED 3d and dx with multiple PEs on chest CTA with d-dimer 3390, admitted overnight, begun on Lovenox BID, has enough doses Lovenox to last until Mon AM (4 days from now), is due to begin on Pradaxa in 4d has f/u apt with PCP Shannon Agarwal in 4d has c/o new pain again at R lower lateral hemithorax at 1 PM she was in shower and felt dizzy and had CP, felt better after 45 minutes, denies pain now altho still is tender in same area stopped BCP 3d ago here with mother hospitalized 05/09 to 05/10 here no leg swelling, has not had u/s is on levofloxacin "for inc'd WBC" Rt lung Pain Score (Numeric/FACES): 2 - Related Data Allergies Allergy/AdvReac Type Severity Reaction Status Date / Time No Known Allergies Allergy Verified 05/11/17 14:32 Home Meds: Home Meds Dabigatran [Pradaxa] 150 mg PO BID #60 cap 05/09/17 [Rx] Enoxaparin [Lovenox] 120 mg SUBCUT Q12H #9 syringe 05/09/17 [Rx] Hydrocodone/Acetaminophen [[place] 7.5-325 Tablet] 1 each PO Q4H PRN #15 tablet [Rx] Propranolol [Inderal LA] 60 mg PO BEDTIME 05/09/17 [History] SUMAtriptan Succinate [Imitrex] 100 mg PO ASDIRECTED PRN 05/09/17 [History] buPROPion [Wellbutrin SR] 150 mg PO BID 05/09/17 [History] Levofloxacin [Levaquin] 750 mg PO BEDTIME 05/11/17 [History] Past Medical History - Past Health History Medical/Surgical History: Denies Medical/Surgical History HEENT History: Reports: Impaired Vision, Otitis Media Respiratory History: Reports: PE 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: Neurological History: Reports: Migraines Psychiatric History: Reports: Depression - Infectious Disease History Infectious Disease History: Reports: Chicken Pox - Past Surgical History HEENT Surgical History: Reports: Tonsillectomy Social & Family History - Family History Family Medical History: Unobtainable - Tobacco Use Smoking Status *Q: Never Smoker Second Hand Smoke Exposure: No - Caffeine Use Caffeine Use: Reports: None - Recreational Drug Use Recreational Drug Use: No ED ROS GENERAL - Review of Systems Review Of Systems: See Below Constitutional: Reports: No Symptoms HEENT: Reports: No Symptoms Respiratory: Reports: No Symptoms. Denies: Shortness of Breath, Cough Cardiovascular: Reports: Chest Pain, Lightheadedness. Denies: Dyspnea on Exertion Endocrine: Reports: No Symptoms GI/Abdominal: Reports: No Symptoms : Reports: No Symptoms Musculoskeletal: Reports: No Symptoms Skin: Reports: No Symptoms Neurological: Reports: No Symptoms Psychiatric: Reports: No Symptoms Hematologic/Lymphatic: Reports: No Symptoms Immunologic: Reports: No Symptoms ED EXAM, GENERAL - Physical Exam Exam: See Below Exam Limited By: No Limitations General Appearance: Alert, WD/WN, No Apparent Distress, Other (alert, moves easily) Nose: Normal Inspection, Normal Mucosa, No Blood Throat/Mouth: Normal Inspection, Normal Lips, Normal Teeth, Normal Gums, Normal Oropharynx, Normal Voice, No Airway Compromise Head: Atraumatic, Normocephalic Neck: Normal Inspection, Supple, Non-Tender, Full Range of Motion Respiratory/Chest: No Respiratory Distress, Lungs Clear, Normal Breath Sounds, No Accessory Muscle Use, Other (winces to palpation at R lower hemithorax in AAL , NT elsewhere) Cardiovascular: No Rub, Tachycardia, Other (occasional S3, regular, 2/6 KRISS at LSB) Back Exam: Normal Inspection, Full Range of Motion, NT Extremities: Normal Inspection, Normal Range of Motion, Non-Tender, Normal Capillary Refill, Other (1+ edema to knees b/l, symmetric) Neurological: Alert, Oriented, CN II-XII Intact, Normal Cognition, No Motor/ Sensory Deficits Psychiatric: Normal Affect, Normal Mood Skin Exam: Warm, Dry, Intact, Normal Color, No Rash Lymphatic: No Adenopathy Course - Vital Signs Last Recorded V/S: Last Vital Signs Temp 37.1 C 05/11/17 14:15 Pulse 114 H 05/11/17 14:15 Resp 16 05/11/17 14:15 BP 118/82 05/11/17 14:15 Pulse Ox 99 05/11/17 14:15 - Orders/Labs/Meds Orders: Active Orders 24 hr Category Date Time Status Orthostatic Vital Signs [RC] ASDIRECTED Care 05/11/17 18:08 Ordered VL Duplex Lwr Ext Veins Comp [US] Stat Exams 05/11/17 15:00 Taken Sodium Chloride 0.9% [Normal Saline] 1,000 ml Med 05/11/17 15:15 Active IV ASDIRECTED EKG 12 Lead [EK] Routine Ther 05/11/17 15:03 Ordered Medication Orders Sodium Chloride (Normal Saline) 1,000 mls @ 999 mls/hr IV ASDIRECTED [facility] Labs: Laboratory Tests 05/11/17 05/11/17 05/11/17 Range/Units 16:40 16:40 16:40 WBC 10.5 (4.5-12.0) X10-3/uL RBC 4.35 (3.23-5.20) x10(6)uL Hgb 12.2 (11.5-15.5) g/dL Hct 36.4 (30.0-51.3) % MCV 83.8 (80-96) fL MCH 28.1 (27.7-33.6) pg MCHC 33.5 (32.2-35.4) g/dL RDW 12.9 (11.5-15.5) % Plt Count 270 (125-369) X10(3)uL MPV 8.2 (7.4-10.4) fL Neut % (Auto) 77.8 (46-82) % Lymph % (Auto) 17.2 (13-37) % [place] % (Auto) 3.4 L (4-12) % Eos % (Auto) 1 (1.0-5.0) % Baso % (Auto) 0 (0-2) % Neut # (Auto) 8.2 (1.6-8.3) # Lymph # (Auto) 1.8 (0.6-5.0) # [place] # (Auto) 0.4 (0.0-1.3) # Eos # (Auto) 0.1 (0.0-0.8) # Baso # (Auto) 0.0 (0.0-0.2) # D-Dimer, Quantitative 2860 H (100-400) ng/mL Sodium 141 (135-145) mmol/L Potassium 4.0 (3.5-5.3) mmol/L Chloride 104 (100-110) mmol/L Carbon Dioxide 25 (21-32) mmol/L BUN 13 (7-18) mg/dL Creatinine 0.8 (0.55-1.02) mg/dL Est Cr Clr Drug Dosing 118.06 mL/min Estimated GFR (MDRD) > 60 (>60) BUN/Creatinine Ratio 16.3 (9-20) Glucose 97 (80-116) mg/dL Calcium 9.7 (8.6-10.2) mg/dL Troponin I (<0.017-0.056) ng/mL C-Reactive Protein (0.5-0.9) mg/dL NT-Pro-B Natriuret Pep (<=125) pg/mL 05/11/17 05/11/17 Range/Units 16:40 16:40 WBC (4.5-12.0) X10-3/uL RBC (3.23-5.20) x10(6)uL Hgb (11.5-15.5) g/dL Hct (30.0-51.3) % MCV (80-96) fL MCH (27.7-33.6) pg MCHC (32.2-35.4) g/dL RDW (11.5-15.5) % Plt Count (125-369) X10(3)uL MPV (7.4-10.4) fL Neut % (Auto) (46-82) % Lymph % (Auto) (13-37) % [place] % (Auto) (4-12) % Eos % (Auto) (1.0-5.0) % Baso % (Auto) (0-2) % Neut # (Auto) (1.6-8.3) # Lymph # (Auto) (0.6-5.0) # [place] # (Auto) (0.0-1.3) # Eos # (Auto) (0.0-0.8) # Baso # (Auto) (0.0-0.2) # D-Dimer, Quantitative (100-400) ng/mL Sodium (135-145) mmol/L Potassium (3.5-5.3) mmol/L Chloride (100-110) mmol/L Carbon Dioxide (21-32) mmol/L BUN (7-18) mg/dL Creatinine (0.55-1.02) mg/dL Est Cr Clr Drug Dosing mL/min Estimated GFR (MDRD) (>60) BUN/Creatinine Ratio (9-20) Glucose (80-116) mg/dL Calcium (8.6-10.2) mg/dL Troponin I < 0.017 L (<0.017-0.056) ng/mL C-Reactive Protein 6.3 H* (0.5-0.9) mg/dL NT-Pro-B Natriuret Pep 83 (<=125) pg/mL Meds: Medications Generic Name Dose Route Start Last Admin Trade Name Freq PRN Reason Stop Dose Admin Sodium Chloride 1,000 mls @ 999 mls/hr 05/11/17 15:15 Normal Saline IV ASDIRECTED [facility] - Re-Assessments/Exams Free Text/Narrative Re-Assessment/Exam: 05/11/17 18:18 labs reviewed with pt and her mother and 2 other family members d-dimer down slightly from 3390 to 2800, c/w healing and resolution of clots u/s of LE b/l is negative for DVTs, no pain, no differential swelling inc'd CRP 6.3 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 pt mildly orthostatic with BP 119/77 and HR 90 supine, BP 117/71 and HR 108 standing, need to increase fluids reviewed 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, does factory work, has f/u apt in 4d with Shannon Galeano no new PEs or new clinical issues identified other than mild orthostasis pt advised to return to ED if she feels worse mild tachycardia corrected with rest, EKG and trop and BNP are all wnl Departure - Departure Time of Disposition: 18:22 Disposition: Home, Self-Care 01 Condition: Good Clinical Impression: Pleurisy, Orthostasis, Mild dehydration - Discharge Information Instructions: Pleurisy, Dehydration, Adult, Pulmonary Embolism Referrals: Katie Galeano [employer]ER [Primary Care Provider] - Forms: ED Department Discharge Additional Instructions: Continue Lovenox as prescribed. Use heat to chest wall for 10 minutes 4 times a day. Take acetaminophen 500 mg 2 tabs 4 times a day for 3 days, longer if needed. Increase fluids. Limit caffeine. See your doctor in 4 days as scheduled. Return to ED if you are feeling worse. Call your Physician or Return to Emergency Department if: * Your condition worsens in any way. * You develop fever greater than 100.4. * You have vomitting that does not stop with medications. * You have pain that is not controlled with medications. - My Orders Last 24 Hours: My Active Orders 05/11/17 15:00 VL Duplex Lwr Ext Veins Comp [US] Stat 05/11/17 15:03 EKG 12 Lead [EK] Routine 05/11/17 15:15 Sodium Chloride 0.9% [Normal Saline] 1,000 ml IV ASDIRECTED 05/11/17 18:08 Orthostatic Vital Signs [RC] ASDIRECTED - Assessment/Plan Last 24 Hours: My Active Orders 05/11/17 15:00 VL Duplex Lwr Ext Veins Comp [US] Stat 05/11/17 15:03 EKG 12 Lead [EK] Routine 05/11/17 15:15 Sodium Chloride 0.9% [Normal Saline] 1,000 ml IV ASDIRECTED 05/11/17 18:08 Orthostatic Vital Signs [RC] ASDIRECTED
[2017-05-11] MEDS ORDERED: Sodium Chloride 0.9% 1,000 ML IV SCH (15:15)
--- NOTE | 2017-05-12 10:44 | US ---
INDICATION: History of PE diagnosed 3 days ago, new chest pain. DUPLEX ULTRASOUND, BILATERAL LOWER EXTREMITY VEINS: Utilizing 2-D real time, duplex Doppler spectral analysis and color flow imaging, examination of the right and left lower extremity veins was obtained 05/11/2017 and revealed normal compression of the deep venous structures and the greater saphenous to the knee, as visualized - peroneals not visualized. There is difficulty in visualizing calf veins, due to patient body habitus. IMPRESSION: No evidence of deep venous thrombosis, as visualized - valves were not evaluated. Report was called to Dr. Desai at 1652 hours. GEORGIAD
== END 2017-05-11 18:30 | disposition home or self-care (01) ==
LOC: FB.ED 14:13
DX: R09.1 Pleurisy (principal); E86.0 Dehydration; Z79.899 Other long term (current) drug therapy
CPT/HCPCS: 36415; 80048; 83880; 84484; 85025; 85379; 86140; 93005; 93970; 99284